=== PATIENT | female | born 1975 | race African-American/Black ===

== ENCOUNTER 2019-02-21 17:55 | Emergency (ER) | payer BC ==
[2019-02-21 18:07] VITALS: BP 169/106
[2019-02-21] MEDS ORDERED: DEXAMETHASONE SOD PHOS INJ 10 MG/1 ML VIAL IM ONE (18:38)
[2019-02-21] MEDS ORDERED: KETOROLAC TROMETHAMINE 60 MG/2 ML SDV IM ONE (18:38)
--- NOTE | 2019-02-21 18:40 | ER Document Report ---
HPI - HPI Time Seen by Provider: 02/21/19 18:33 Pain Level: 4 Context: Patient is a 43-year-old female who presents emergency department with a chief complaint of right shoulder pain. She denies any injury. She was not doing anything in particular. She does note that she was doing her cousin's hair yesterday. But states that it was not anything out of the ordinary. - CONSTITUTIONAL Constitutional: DENIES: Fever - EENT EENT: DENIES: Sore Throat, Ear Pain, Nasal Drainage-Clear - NEURO Neurology: DENIES: Headache, Weakness - CARDIOVASCULAR Cardiovascular: DENIES: Chest pain - RESPIRATORY Respiratory: DENIES: Trouble Breathing, Coughing - REPRODUCTIVE Reproductive: DENIES: : - MUSCULOSKELETAL Musculoskeletal: REPORTS: Extremity pain. DENIES: Back Pain, Neck Pain, Swelling - DERM Skin Color: Normal Skin Problems: None Past Medical History - General Information source: Patient - Social History Smoking Status: Never Smoker Frequency of alcohol use: Occasional Drug Abuse: None Family History: Reviewed & Not Pertinent Patient has suicidal ideation: No Patient has homicidal ideation: No Vertical Provider Document - CONSTITUTIONAL Agree With Documented VS: Yes Exam Limitations: No Limitations General Appearance: No Apparent Distress - INFECTION CONTROL TRAVEL OUTSIDE OF THE [place] IN LAST 30 DAYS: No - HEENT HEENT: Atraumatic, Normocephalic, PERRLA - NECK Neck: Normal Inspection, Supple - RESPIRATORY Respiratory: No Respiratory Distress - CARDIOVASCULAR Cardiovascular: Regular Rate, Regular Rhythm Pulses: Normal: Radial - MUSCULOSKELETAL/EXTREMETIES Musculoskeletal/Extremeties: Tender - Right shoulder, No Edema. negative: FROM - Decreased range of motion to right shoulder - NEURO Level of Consciousness: Awake, Alert, Appropriate Motor/Sensory: No Sensory Deficit - DERM Integumentary: Warm, Dry, No Rash Course - Re-evaluation Re-evalutation: 02/21/19 19:39 Patient's x-ray is negative for any acute findings. Capillary refill less than 3 seconds. Radial pulse 2+. Patient states that she feels better after receiving Toradol and Decadron. Patient will follow-up with her primary care provider in regards to this visit. Follow-up precautions were given. Verbal discharge instructions were given to the patient. They verbalized understanding. They are stable for discharge. - Vital Signs Vital signs: Temp Pulse Resp BP Pulse Ox 97.7 F 66 18 169/106 H 100 11/20/19 18:05 02/21/19 18:05 02/21/19 18:05 02/21/19 18:05 02/21/19 18:05 Discharge - Discharge Clinical Impression: Right shoulder pain Qualifiers: Chronicity: acute Qualified Code(s): M25.511 - Pain in right shoulder Condition: Stable Disposition: HOME, SELF-CARE Additional Instructions: You are seen today in the emergency department for right shoulder pain. Your x- ray was normal. You were given Toradol, medication for pain and Decadron, steroid to help with pain. You can take ibuprofen in 8 hours from now. You can take 600 mg every 6 hours for your pain. Please follow-up with your primary care provider and see if he can get physical therapy if you continue to have pain. If you have worsening symptoms, return to the emergency department. Forms: Return to Work, Elevated Blood Pressure
--- NOTE | 2019-02-21 19:11 | RADIOLOGY REPORT (SQ) ---
EXAM DESCRIPTION: SHOULDER RIGHT 2 OR MORE VIEWS COMPLETED DATE/TIME: 02/21/2019 7:04 pm REASON FOR STUDY: right shoulder pain COMPARISON: None. NUMBER OF VIEWS: Three views. TECHNIQUE: Internal rotation, external rotation, and Y view images acquired of the right shoulder. LIMITATIONS: None. FINDINGS: MINERALIZATION: Normal. BONES: No acute fracture. No worrisome bone lesions. JOINTS: No dislocation. VISUALIZED LUNGS AND RIBS: No pneumothorax. No rib fracture. SOFT TISSUES: No radiopaque foreign body. OTHER: No other significant finding. IMPRESSION: NEGATIVE STUDY OF THE RIGHT SHOULDER. NO RADIOGRAPHIC EVIDENCE OF ACUTE INJURY. TECHNICAL DOCUMENTATION: JOB ID: [id number]- All Rights Reserved Reading location - IP/workstation name: [email or web address]
== END 2019-02-21 20:38 | disposition home or self-care (01) ==
LOC: ER 17:55
DX: M25.511 Pain in right shoulder (principal)
CPT/HCPCS: 99283; 96374; 96375; 73030; J1885; J1100

== ENCOUNTER 2019-05-02 12:38 | Emergency (ER) | payer BC ==
--- NOTE | 2019-05-02 13:35 | ER Document Report ---
ED Medical Screen (RME) - General Chief Complaint: Vaginal Bleeding Stated Complaint: VAGINAL BLEEDING Time Seen by Provider: 05/02/19 13:27 Mode of Arrival: Ambulatory Information source: Patient Notes: Otherwise healthy 43-year-old female presenting to the emergency department chief complaint of vaginal bleeding. Patient reports her current menstrual cycle started about 5 days ago, she states that she is now having heavy bleeding, she states she has already bled through tampons, pads and all of her clothes twice today. She reports mild low abdominal cramping. She is concerned she may have a fibroid. Abdomen soft, nontender. I have greeted and performed a rapid initial assessment of this patient. A comprehensive ED assessment and evaluation of the patient, analysis of test re sults and completion of the medical decision making process will be conducted by additional ED providers. I have specifically instructed the patient or family members with the patient to immediately return to any nursing staff should anything change in the patient's condition or with their chief complaint. TRAVEL OUTSIDE OF THE [place] IN LAST 30 DAYS: No - Related Data Allergies/Adverse Reactions: Sulfa (Sulfonamide Antibiotics) Allergy (Verified 05/02/19 13:18) Home Medications: denies Past Medical History - Social History Chew tobacco use (# tins/day): No Frequency of alcohol use: Occasional Drug Abuse: None Physical Exam - Vital signs Vitals: Temp Pulse Resp BP Pulse Ox 98.2 F 94 18 144/86 H 100 05/02/19 12:41 05/02/19 12:41 05/02/19 12:41 05/02/19 12:41 05/02/19 12:41 Course - Vital Signs Vital signs: Temp Pulse Resp BP Pulse Ox 98.2 F 94 18 144/86 H 100 05/02/19 12:41 05/02/19 12:41 05/02/19 12:41 05/02/19 12:41 05/02/19 12:41
[2019-05-02 14:18] LABS: ABSOLUTE BASOPHILS # (AUTO) 0.1 10^3/uL (0.0-0.2); ABSOLUTE MONOCYTES (AUTO) 0.6 10^3/uL (0.1-1.4); BASOPHILS % (AUTO) 0.6 % (0-2); EOSINOPHILS % (AUTO) 0.4 % (0-6); HEMATOCRIT 35.7 % (36.0-47.0); HEMOGLOBIN 12.3 g/dL (12.0-15.5); LYMPHOCYTES % (AUTO) 21.1 % (13-45); MEAN CORPUSCULAR HEMOGLOBIN 30.5 pg (27.0-33.4); MEAN CORPUSCULAR HGB CONC 34.6 g/dL (32.0-36.0); MEAN CORPUSCULAR VOLUME 88 fl (80-97); MONOCYTES % (AUTO) 5.8 % (3-13); PLATELET COUNT 314 10^3/uL (150-450); RED BLOOD COUNT 4.04 10^6/uL (3.72-5.28); RED CELL DISTRIBUTION WIDTH 13.7 % (11.5-14.0); SEGMENTED NEUTROPHILS % (AUTO) 72.1 % (42-78); TOTAL CELLS COUNTED % (AUTO) 100 %; WHITE BLOOD COUNT 9.7 10^3/uL (4.0-10.5)
[2019-05-02 14:35] LABS: ALKALINE PHOSPHATASE 62 U/L (38-126); ANION GAP 8 (5-19); ASPARTATE AMINO TRANSFERASE 16 U/L (14-36); BILIRUBIN,TOTAL 0.3 mg/dL (0.2-1.3); BLOOD UREA NITROGEN 12 mg/dL (7-20); CALCIUM 9.2 mg/dL (8.4-10.2); CARBON DIOXIDE 29 mmol/L (22-30); CHLORIDE 104 mmol/L (98-107); GLUCOSE 100 mg/dL (75-110); POTASSIUM 3.8 mmol/L (3.6-5.0); TOTAL PROTEIN 7.8 g/dL (6.3-8.2)
--- NOTE | 2019-05-02 16:12 | RADIOLOGY REPORT (SQ) ---
EXAM DESCRIPTION: U/S NON OB PEL TV W/DOPPLER COMPLETED DATE/TIME: 05/02/2019 2:51 pm REASON FOR STUDY: EVAL FOR FIBROID COMPARISON: None. TECHNIQUE: Dynamic and static grayscale images acquired of the pelvis via transvaginal approach and recorded on PACS. Additional selected color Doppler and spectral images recorded. LIMITATIONS: None. FINDINGS: UTERUS: Uterus measures 10.7 x 7.1 x 5.5 cm. There is hypoechoic mass within the fundus m easuring 2.3 by 2.4 cm compatible with an intramural fibroid. ENDOMETRIAL STRIPE: Endometrial stripe is visualized and measures 5.8 mm. CERVIX: No nabothian cyst. Cervix measures 2.5 cm. RIGHT OVARY AND DOPPLER: Normal size measuring 3.4 x 1.7 x 1.2 cm. There is a 1.2 x 1.7 x 0.9 cm cys tic, likely functional follicle. Normal arterial vascular flow without evidence for torsion. LEFT OVARY AND DOPPLER: Normal size measuring 3.0 x 1.6 x 1.8 cm. No worrisome masses. Normal arteria l vascular flow without evidence for torsion. FREE FLUID: None noted. OTHER: No other significant finding. IMPRESSION: 1. Hypoechoic mass within the uterine fundus measuring 2.3 x 2.4 cm most compatible wit h intramural fibroid. 2. Unremarkable ovaries. TECHNICAL DOCUMENTATION: JOB ID: [id number]- All Rights Reserved Rev-08/19 Reading location - IP/workstation name: [email or web address]
--- NOTE | 2019-05-02 16:39 | ER Document Report ---
ED General - General Chief Complaint: Vaginal Bleeding Stated Complaint: VAGINAL BLEEDING Time Seen by Provider: 05/02/19 13:27 Mode of Arrival: Ambulatory Information source: Patient Notes: 43-year-old female presents emergency department with complaints of heavy vaginal bleeding for the past 5 days. She reports she has had some lower abdominal cramping also. She reports she had to change her close today at work. She reports she has had heavy menses her entire life. She also reports she is had horrible cramps her entire life. She reports the bleeding did lessen for the past 2 years and then when she started her menses 5 days ago it is been very heavy. She denies shortness of breath fatigue. She denies fever vomiting diarrhea. TRAVEL OUTSIDE OF THE [place] IN LAST 30 DAYS: No - HPI Onset: Other - 5 days Onset/Duration: Persistent Quality of pain: Cramping Associated symptoms: None. denies: Shortness of breath Exacerbated by: Denies Relieved by: Denies Similar symptoms previously: Yes Recently seen / treated by doctor: No - Related Data Allergies/Adverse Reactions: Sulfa (Sulfonamide Antibiotics) Allergy (Verified 05/02/19 13:18) Home Medications: denies Past Medical History - General Information source: Patient Last Menstrual Period: 5 days ago - Social History Smoking Status: Never Smoker Cigarette use (# per day): No Chew tobacco use (# tins/day): No Frequency of alcohol use: Occasional Drug Abuse: None Occupation: [employer] Lives with: Family Family History: Reviewed & Not Pertinent, Other - Younger sister with a hysterectomy for questionable diagnosis. Patient has suicidal ideation: No Patient has homicidal ideation: No - Medical History Medical History: Negative Past Surgical History: Reports: Hx Tubal Ligation Review of Systems - Review of Systems Notes: Review HPI for review of systems., All other systems negative Physical Exam - Vital signs Vitals: Temp Pulse Resp BP Pulse Ox 98.2 F 94 18 144/86 H 100 05/02/19 12:41 05/02/19 12:41 05/02/19 12:41 05/02/19 12:41 05/02/19 12:41 - Notes Notes: PHYSICAL EXAMINATION: GENERAL: Well-appearing and in no acute distress HEAD: Atraumatic, normocephalic. EYES: extraocular movements intact, sclera anicteric, conjunctiva are normal. ENT: nares patent, Moist mucous membranes. NECK: Normal range of motion, supple without lymphadenopathy LUNGS: CTAB and equal. No wheezes rales or rhonchi. HEART: Regular rate and rhythm without murmurs ABDOMEN: Soft, no tenderness. No guarding, no rebound EXTREMITIES: Normal range of motion NEUROLOGICAL: Cranial nerves grossly intact. PSYCH: Normal mood, normal affect. SKIN: Warm, Dry, normal turgor, no rashes or lesions noted Course - Re-evaluation Re-evalutation: 05/02/19 16:38 43-year-old female presents with complaints of heavy menstrual bleeding for the past 5 days. She also complains of some low abdominal pain. Labs are unremarkable. Ultrasound shows intramural fibroids. Patient reports she has had heavy menstrual periods all her life. She reports approximately 2 years ago the bleeding was less but this menses was very heavy. She also reports she has had horrible cramps her entire life. She was instructed on the ultrasound and labs. Patient's COUNTER CASER is at [place]. She reports she is moved here but she kept that COUNTER CASER because she really likes them. She was given a copy of all her labs and her ultrasound reports she was instructed to follow-up with a COUNTER CASER within the week. She was also instructed on signs and symptoms of anemia. Patient was also given written information about uterine fibroids. She verbalized understanding to all instructions. Laboratory 05/02/19 05/02/19 05/02/19 13:59 13:59 13:59 WBC 9.7 RBC 4.04 Hgb 12.3 Hct 35.7 L MCV 88 MCH 30.5 MCHC 34.6 RDW 13.7 Plt Count 314 Lymph % (Auto) 21.1 [place] % (Auto) 5.8 Eos % (Auto) 0.4 Baso % (Auto) 0.6 Absolute Neuts (auto) 7.0 Absolute Lymphs (auto) 2.0 Absolute Monos (auto) 0.6 Absolute Eos (auto) 0.0 Absolute Basos (auto) 0.1 Seg Neutrophils % 72.1 Sodium 141.4 Potassium 3.8 Chloride 104 Carbon Dioxide 29 Anion Gap 8 BUN 12 Creatinine 0.77 Est GFR ( Amer) > 60 Est GFR (MDRD) Non-Af > 60 Glucose 100 Calcium 9.2 Total Bilirubin 0.3 Direct Bilirubin 0.0 Neonat Total Bilirubin Not Reportable Neonat Direct Bilirubin Not Reportable Neonat Indirect Bili Not Reportable AST 16 ALT 7 Alkaline Phosphatase 62 Total Protein 7.8 Albumin 4.0 Serum HCG, Qual NEGATIVE Transvaginal US 05/02/19 13:33 IMPRESSION: 1. Hypoechoic mass within the uterine fundus measuring 2.3 x 2.4 cm most compatible with intramural fibroid. 2. Unremarkable ovaries. - Vital Signs Vital signs: Temp Pulse Resp BP Pulse Ox 97.7 F 68 18 151/87 H 100 05/02/19 17:07 05/02/19 17:07 05/02/19 17:07 05/02/19 17:07 05/02/19 17:07 - Laboratory Result Diagrams: 05/02/19 13:59 05/02/19 13:59 Laboratory results interpreted by me: 05/02/19 13:59 Hct 35.7 L - Diagnostic Test Radiology reviewed: Reports reviewed Discharge - Discharge Clinical Impression: Vaginal bleeding, Fibroids, intramural Condition: Stable Disposition: HOME, SELF-CARE Additional Instructions: *You have been evaluated for vaginal bleeding, uterine fibroids *Follow up with your [employer] HELPER within one week for evaluation *Return to ED for worsening condition, changes, needs, worsening bleeding concerns Monitor your blood pressure. Your blood pressure was elevated today. This may be because you were anxious, in pain or because you need medication. It is important to follow up with your primary care provider for full evaluation. Forms: Elevated Blood Pressure
[2019-05-02 17:08] VITALS: BP 151/87
== END 2019-05-02 17:10 | disposition home or self-care (01) ==
LOC: ER 12:38
DX: D25.1 Intramural leiomyoma of uterus (principal); N93.9 Abnormal uterine and vaginal bleeding, unspecified; R10.30 Lower abdominal pain, unspecified; Z88.2 Allergy status to sulfonamides
CPT/HCPCS: 36415; 76830; 80053; 84703; 85025; 93976; 99284

== ENCOUNTER 2019-07-01 23:42 | Emergency (ER) | payer BC, MEDICAID ==
[2019-07-02 00:32] LABS: ABSOLUTE BASOPHILS # (AUTO) 0.1 10^3/uL (0.0-0.2); ABSOLUTE LYMPHOCYTES (AUTO) 2.4 10^3/uL (0.5-4.7); ABSOLUTE MONOCYTES (AUTO) 0.6 10^3/uL (0.1-1.4); BASOPHILS % (AUTO) 0.6 % (0-2); EOSINOPHILS % (AUTO) 0.2 % (0-6); HEMATOCRIT 34.3 % (36.0-47.0); LYMPHOCYTES % (AUTO) 24.2 % (13-45); MEAN CORPUSCULAR HEMOGLOBIN 30.6 pg (27.0-33.4); MEAN CORPUSCULAR VOLUME 87 fl (80-97); MONOCYTES % (AUTO) 5.6 % (3-13); PLATELET COUNT 304 10^3/uL (150-450); RED BLOOD COUNT 3.94 10^6/uL (3.72-5.28); RED CELL DISTRIBUTION WIDTH 14.2 % (11.5-14.0); SEGMENTED NEUTROPHILS % (AUTO) 69.4 % (42-78); TOTAL CELLS COUNTED % (AUTO) 100 %; WHITE BLOOD COUNT 10.1 10^3/uL (4.0-10.5)
[2019-07-02 00:45] LABS: ALBUMIN 3.6 g/dL (3.5-5.0); ALKALINE PHOSPHATASE 57 U/L (38-126); ANION GAP 6 (5-19); ASPARTATE AMINO TRANSFERASE 15 U/L (14-36); BILIRUBIN,DIRECT 0.2 mg/dL (0.0-0.4); BILIRUBIN,TOTAL 0.2 mg/dL (0.2-1.3); BLOOD UREA NITROGEN 13 mg/dL (7-20); CARBON DIOXIDE 27 mmol/L (22-30); CHLORIDE 105 mmol/L (98-107); GLUCOSE 126 mg/dL (75-110); POTASSIUM 3.9 mmol/L (3.6-5.0); TOTAL PROTEIN 7.7 g/dL (6.3-8.2)
[2019-07-02 01:19] LABS: APPEARANCE,URINE CLEAR; BILIRUBIN,URINE NEGATIVE (NEGATIVE); COLOR,URINE YELLOW; GLUCOSE, URINE NEGATIVE (NEGATIVE); KETONES,URINE NEGATIVE (NEGATIVE); LEUKOCYTE ESTERASE,URINE NEGATIVE (NEGATIVE); NITRITE,URINE NEGATIVE (NEGATIVE); PROTEIN,URINE NEGATIVE (NEGATIVE); URINE SPECIFIC GRAVITY 1.025
[2019-07-02] MEDS ORDERED: KETOROLAC TROMETHAMINE INJ/PF 30 MG/1 ML SDV IV ONE (01:57)
[2019-07-02] MEDS ORDERED: NORMAL SALINE 1000 ML 1,000 ML IV ONE (03:15)
--- NOTE | 2019-07-02 03:47 | RADIOLOGY REPORT (SQ) ---
Ultrasound pelvis transvaginal on 07/02/2019 at 2:33 AM Clinical dictation: Right pelvic pain COMPARISON: 05/02/2019 FINDINGS: Multiple sonographic images are obtained throughout the pelvis by transvaginal approach, both transverse and sagittal images are obtained. Uterus measures approximately 9.8 x 6.4 x 6.0 cm. In the anterior uterine fundus there is a subserosal hypoechoic area consistent with fibroid. This measures up to 2.2 cm in greatest diameter. Uterine myometrium is otherwise homogeneous. Endometrial stripe measures 9 mm which is within normal limits. The right ovary measures approximately 4.2 x 2.1 x 3.1 cm. Within the right ovary there is a 2.8 x 1.9 x 2.6 cm hypoechoic lesion with internal echoes and increased through transmission and no internal blood flow consistent with small hemorrhagic ovarian cyst. This should be considered benign with no follow-up recommended. Flow is demonstrated in the right ovary. Left ovary is not visualized. No other adnexal mass or fluid collection is noted. IMPRESSION: 1. 2.8 cm small hemorrhagic right ovarian cyst which should be considered benign with no follow-up recommended. 2. Small likely subserosal uterine fibroid again noted.
[2019-07-02] MEDS ORDERED: HYDROCODONE/ACETAMINOPHEN 5-325 MG (6 TAB/ER DISP) PO PRN (04:21)
[2019-07-02] MEDS ORDERED: ONDANSETRON ODT 4 MG TAB (6 TAB/ER DISP) PO PRN (04:21)
--- NOTE | 2019-07-02 04:27 | ER Document Report ---
ED GI/ - General Chief Complaint: Abdominal Pain Stated Complaint: ABDOMINAL PAIN Time Seen by Provider: 07/02/19 01:51 Notes: Patient is a 43-year-old female that comes emergency department for chief complaint of vaginal bleeding and lower abdominal pain. She states this started yesterday, became much worse tonight with sharp pain in the right lower abdomen. She has also had a recent menstrual cycle. She states she could not sleep when it became severe so she came in for evaluation. She denies flank pain, dysuria, vaginal discharge. She states she was diagnosed with a fibroid but has never had pain like this. She has had a tubal ligation. She denies any diagnosed medical history otherwise. She denies fever, nausea, vomiting, or concerns of STDs. TRAVEL OUTSIDE OF THE [place] IN LAST 30 DAYS: No - Related Data Allergies/Adverse Reactions: Sulfa (Sulfonamide Antibiotics) Allergy (Verified 05/02/19 13:18) Past Medical History - General Information source: Patient - Social History Smoking Status: Never Smoker Chew tobacco use (# tins/day): No Frequency of alcohol use: None Drug Abuse: None Lives with: Family Family History: Reviewed & Not Pertinent, Other - Younger sister with a hysterectomy for questionable diagnosis. Patient has suicidal ideation: No Patient has homicidal ideation: No Renal/ Medical History: Reports: Other - Uterine fibroid Past Surgical History: Reports: Hx Tubal Ligation Review of Systems - Review of Systems Constitutional: No symptoms reported EENT: No symptoms reported Cardiovascular: No symptoms reported Respiratory: No symptoms reported Gastrointestinal: See HPI Genitourinary: See HPI Female Genitourinary: See HPI Musculoskeletal: No symptoms reported Skin: No symptoms reported Hematologic/Lymphatic: No symptoms reported Neurological/Psychological: No symptoms reported Physical Exam - Vital signs Vitals: Temp Pulse Resp BP Pulse Ox 98.4 F 80 18 141/81 H 99 07/01/19 23:57 07/01/19 23:57 07/01/19 23:57 07/01/19 23:57 07/01/19 23:57 - Notes Notes: GENERAL: Alert, interacts well. No acute distress. HEAD: Normocephalic, atraumatic. EYES: Pupils equal, round, and reactive to light. Extraocular movements intact. ENT: Oral mucosa moist, tongue midline. Oropharynx unremarkable. Airway patent. LUNGS: Clear to auscultation bilaterally, no wheezes, rales, or rhonchi. No respiratory distress. HEART: Regular rate and rhythm. No murmur ABDOMEN: Patient is significantly tender in the right pelvic area, however the remaining abdomen is completely benign. No guarding or rigidity. GENITOURINARY: Deferred EXTREMITIES: Moves all 4 extremities spontaneously. No edema, normal radial and dorsalis pedis pulses bilaterally. No cyanosis. BACK: no cervical, thoracic, lumbar midline tenderness. No saddle anesthesia, normal distal neurovascular exam. Moves all extremities in full range of motion. NEUROLOGICAL: Alert and oriented x3. Normal speech. Cranial nerves II through XII grossly intact. PSYCH: Normal affect, normal mood. SKIN: Warm, dry, normal turgor. No rashes or lesions noted. Course - Re-evaluation Re-evalutation: Patient appears comfortable and is well-appearing, however she does have very specific right pelvic tenderness. I suspect an ovarian cyst. Because of the amount of reported pain ultrasound will be performed. CBC, chemistry, urinalysis unremarkable except for elevated specific gravity and likely vaginal bleeding contamination, negative. After Toradol symptoms completely resolved. Ultrasound does indicate a small uterine fibroid and right sided hemorrhagic ovarian cyst consistent with patient's evaluation. Discussed details with patient, expectations, follow-up, return cautions. Patient states appreciation and agreement. Stable at time of discharge. - Vital Signs Vital signs: Temp Pulse Resp BP Pulse Ox 97.5 F 71 16 135/89 H 100 07/02/19 04:43 07/02/19 04:43 07/02/19 04:43 07/02/19 04:43 07/02/19 04:43 - Laboratory Result Diagrams: 07/02/19 00:14 07/02/19 00:14 Laboratory results interpreted by me: 07/02/19 07/02/19 07/02/19 00:14 00:14 01:05 Hct 34.3 L RDW 14.2 H Glucose 126 H Urine Blood LARGE H Urine Urobilinogen 2.0 H Discharge - Discharge Clinical Impression: Pelvic pain, Vaginal bleeding, Hemorrhagic ovarian cyst Condition: Stable Disposition: HOME, SELF-CARE Additional Instructions: Your work-up shows again a small fibroid but I believe your symptoms are coming from a right-sided hemorrhagic cyst (bleeding cyst on your right ovary). This does resolve with time but can be painful. Take the pain medication if needed, otherwise take ibuprofen for pain. Follow-up with primary care for additional management. Return for any concerning symptoms including very heavy bleeding, dizziness, passing out, fever, vomiting, or any other concerning or worsening symptoms. Prescriptions: Oxycodone HCl/Acetaminophen [Percocet 5-325 mg Tablet] 1 - 2 tab PO TID PRN #10 tablet PRN Reason:
[2019-07-02 04:33] VITALS: BP 135/89
== END 2019-07-02 04:43 | disposition home or self-care (01) ==
LOC: ER 23:42
DX: N83.201 Unspecified ovarian cyst, right side (principal); D25.9 Leiomyoma of uterus, unspecified; N93.9 Abnormal uterine and vaginal bleeding, unspecified; Z88.2 Allergy status to sulfonamides
CPT/HCPCS: 99284; 96361; 96374; 36415; 85025; 81025; 80053; 81001; 76830; 93976; J1885; J7030